=== PATIENT | male | born 1940 | race Caucasian/White ===

== ENCOUNTER 2017-04-16 12:44 | Inpatient (IN) | payer MEDICARE ==
[2017-04-16] MEDS ORDERED: ACETAMINOPHEN TAB 325 MG TAB PO PRN (16:09)
[2017-04-16] MEDS ORDERED: HYDROcodone/APAP 5-325MG 1 EACH TAB PO PRN (16:09)
[2017-04-16] MEDS ORDERED: NALOXONE 0.4 MG/ML 1 ML VIAL IV PRN (16:09)
[2017-04-16] MEDS ORDERED: SODIUM CHLORIDE 0.9% 500 ML IV ONE (16:15)
[2017-04-16] MEDS: SODIUM CHLORIDE 0.9% 1,000 ML IV SCH (16:35)
[2017-04-16 16:54] LABS: Basophils % (A) 0 %; CH 32.8; CHCM 35.5; Eosinophils # (A) 0.5 k/uL (0-0.7); Eosinophils % (A) 4 %; HCT 42.3 % (39.0-53.0); HDW 2.88; HGB 14.8 gm/dL (13.0-17.5); Luc # (Auto) 0.15; Luc % (Auto) 1; Lymphocytes # (A) 1.4 k/uL (1.0-4.8); Lymphocytes % (A) 12 %; MCH 32.6 pg (25.0-35.0); Mean Platelet Volume 8.6; Monocytes # (A) 0.7 k/uL (0-1.0); Monocytes % (A) 6 %; Neutrophils # (A) 8.6 k/uL (1.3-7.7); Neutrophils % (A) 76 %; RBC 4.54 m/uL (4.30-5.90); RDW 12.7 % (11.5-15.5); WBC 11.4 k/uL (3.8-10.6); WBC (Perox) 11.45
[2017-04-16 17:12] LABS: Calcium 8.7 mg/dL (8.4-10.2); Phosphorous 4.4 mg/dL (2.5-4.5); Potassium 5.1 mmol/L (3.5-5.1); Total Bilirubin 0.6 mg/dL (0.2-1.3)
[2017-04-16] MEDS: INSULIN LISPRO (humaLOG) 300 UNIT/3 ML VIAL SQ SCH ×2 (18:14→21:09)
[2017-04-16 18:15] LABS: Glucose,Whole Blood 77 mg/dL (75-99)
[2017-04-16 20:07] LABS: Glucose,Whole Blood 173 mg/dL (75-99)
--- NOTE | 2017-04-16 20:25 | US ---
EXAMINATION TYPE: US kidneys/renal and bladder DATE OF EXAM: 04/16/2017 COMPARISON: NONE CLINICAL HISTORY: [place]. Left kidney surgically absent. History of CA to left kidney 16 years ago. Tara ent states he was seen at another hospital this morning where he was told he has kidney stones. EXAM MEASUREMENTS: Right Kidney: 12.2 x 6.3 x 6.5 cm Left Kidney: Surgically absent Right Kidney: Two cystic areas visualized, largest measuring 1.2 x 1.3 x 0.9 cm. Multiple echogenic foci visualized, largest measuring 0.7 cm- possible stones. No hydronephrosis visualized. Cortical m edullary differentiation is maintained. Left Kidney: Surgically absent Bladder: Not distended Bilateral Jets seen: No- bladder not distended Incidental findings: Cystic area visualized right lobe of the liver measuring 4.6 x 3.8 x 4.1 cm. Granulomas within the spleen IMPRESSION: 1. Multiple nonobstructing right renal calculi, the largest measuring 7 mm. 2. Renal cysts, 2 in number, the larger measuring up to 1.2 cm. 3. Sequela of splenic granulomatous disease. 4. Hepatic cysts measuring up to 4.6 cm.
[2017-04-16 20:45] LABS: Hemoglobin A1C 5.7 % (4.2-6.1)
--- NOTE | 2017-04-16 23:59 | HP ---
DATE OF ADMISSION: Patient is a very pleasant 76-year-old gentleman who was transferred from [facility] because of acute renal failure. Patient was seen the day before in Urgent Care because of anuria, and patient was having severe right-sided flank pain radiating to the groin area. Patient's pain is about 10/10; a squeezing pain. Denied any dysuria. Denied any fever or chills. Patient was having nausea and vomiting. His pain has completely resolved at this point of time. Patient was given Toradol, Cipro. UA was done at that time and patient was subsequently discharged from Urgent Care. Patient remained anuric, because of which patient has seen Dr. Villagran in his clinic, who sent him to [facility]. [facility] did basic testing and a CT of the abdomen. CT of the abdomen showed a 2 mm stone with hydronephrosis on the right side. Patient only has one kidney, as his left kidney was removed secondary to renal cell carcinoma, which is in remission at this point of time. Patient's baseline creatinine is around 1.2. It was found to be around 4.5. I was called and subsequently he was transferred here for further evaluation by Urology and Nephrology. Patient also takes lisinopril at home for hypertension; has been taking it for more than a year. He mostly takes to prevent diabetic nephropathy. Patient denied any fever or chills at this point of time. REVIEW OF SYSTEMS: CONSTITUTIONAL: No fever, no malaise, no fatigue. HEENT: No recent visual problems or hearing problems. Denied any sore throat. CARDIOVASCULAR: No chest pain, orthopnea, PND, no palpitations, no syncope. PULMONARY: No shortness of breath, no cough, no hemoptysis. GASTROINTESTINAL: No diarrhea, no nausea, no vomiting, no abdominal pain. Normoactive bowel sounds. NEUROLOGICAL: No headaches, no weakness, no numbness. HEMATOLOGICAL: Denies any bleeding or petechiae. GENITOURINARY: As described in HPI. MUSCULOSKELETAL/RHEUMATOLOGICAL: Denies any joint pain, swelling, or any muscle pain. ENDOCRINE: Denies any polyuria or polydipsia. The rest of the 14 point review of systems is negative. Past medical history is significant for: 1. Renal cell carcinoma. 2. Left-sided nephrectomy. 3. Type 2 diabetes mellitus, for which patient only uses sliding scale insulin. 4. Hypertension, for which patient uses lisinopril and metoprolol. 5. Sleep apnea; uses CPAP machine at home. 6. Patient had a syncopal episode in the past, for which patient has a pacemaker. 7. Some heart rhythm abnormality apparently. SOCIAL HISTORY: Denied any smoking, alcohol abuse or any drug abuse. FAMILY HISTORY: Congestive heart failure, hypertension and heart problems in the family. PHYSICAL EXAMINATION: VITAL SIGNS: Temperature 97.5, pulse of 69, respiratory rate of 16. Blood pressure 117/63. Saturating at 97% on room air. GENERAL: The patient is alert and oriented x3, not in any acute distress. Well developed, well nourished. HEENT: Pupils are round and equally reacting to light. EOMI. No scleral icterus. No conjunctival pallor. Normocephalic, atraumatic. No pharyngeal erythema. No thyromegaly. CARDIOVASCULAR: S1 and S2 present. No murmurs, rubs, or gallops. PULMONARY: Chest is clear to auscultation, no wheezing or crackles. ABDOMEN: Soft, nontender, nondistended, normoactive bowel sounds. No palpable organomegaly. MUSCULOSKELETAL: No joint swelling or deformity. EXTREMITIES: No cyanosis, clubbing, or pedal edema. NEUROLOGICAL: Gross neurological examination did not reveal any focal deficits. SKIN: No rashes. LABORATORY DATA: None available, and significant lab data from [facility] was discussed above. ASSESSMENT AND PLAN: 1. Acute renal failure. Etiology is unknown. 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 Patient will be worked up. Will obtain ultrasound of the abdomen. My suspicion is low that a 2 mm stone which is a non-obstructive stone is causing his symptoms. Patient may have passed a stone. Ultrasound of the urinary bladder will be obtained and Urology will be consulted. Nephrology will be consulted for possible medical renal disease. Patient may have multiple factors that are contributing to his renal dysfunction: Ketorolac, lisinopril, and patient also had 4 episodes of diarrhea yesterday, which resolved at this point of time. They may have contributed to his symptoms as well. Patient may have prerenal azotemia. Patient will be given 500 mL bolus of fluid and IV fluids. Patient remains anuric. Patient does not have any urine in the bladder on the bladder scan. 2. Rule out oliguric acute tubular necrosis. Will obtain urine eosinophil, urinalysis, urine microscopy, urinary random sodium and urinary random creatinine. 3. Hypertension. Hold off Lisinopril at this time. Continue with metoprolol. 4. Diabetes mellitus. Patient is on sliding scale. Patient will be started on sliding scale here as well. Patient will be started on diet. Urology and Nephrology will be consulted. 5. Avoid any nephrotoxic agents. 6. Right-sided nephrolithiasis. Patient may have passed a stone already. Will get the ultrasound of the kidney, gallbladder and Nephrology's opinion as well.
[2017-04-17 01:37] LABS: Amorphous Sediment,Urine Occasional /hpf; Appearance,Urine Cloudy (Clear); Bacteria,Urine Occasional /hpf; Bilirubin,Urine Negative (Negative); Glucose,Urine (UA) Negative (Negative); Ketones,Urine Negative (Negative); Leukocyte Esterase,Urine Large (Negative); Mucus,Urine Few /hpf; Nitrite,Urine Negative (Negative); PH, Urine 5.5 (5.0-8.0); Particle Count 21599; Protein,Urine 1+ (Negative); RBC,Urine 48 /hpf (0-5); Specific Gravity,Urine 1.007 (1.001-1.035); Squamous Epithelial Cell,Urine 1 /hpf (0-4); UA Billing (MACRO vs. MICRO) MICRO; Urobilinogen,Urine <2.0 mg/dL (<2.0); WBC,Urine 33 /hpf (0-5)
[2017-04-17] MEDS: SODIUM CHLORIDE 0.9% 1,000 ML IV SCH ×2 (05:50→13:11)
[2017-04-17 07:31] LABS: Glucose,Whole Blood 90 mg/dL (75-99)
[2017-04-17] MEDS: INSULIN LISPRO (humaLOG) 300 UNIT/3 ML VIAL SQ SCH ×4 (08:10→20:36)
[2017-04-17 08:22] LABS: Basophils % (A) 0 %; CH 32.9; CHCM 35.7; Eosinophils # (A) 0.3 k/uL (0-0.7); Eosinophils % (A) 2 %; HCT 38.2 % (39.0-53.0); HDW 2.81; HGB 13.5 gm/dL (13.0-17.5); Luc # (Auto) 0.15; Luc % (Auto) 1; Lymphocytes # (A) 1.2 k/uL (1.0-4.8); Lymphocytes % (A) 12 %; MCH 32.7 pg (25.0-35.0); MCHC 35.3 g/dL (31.0-37.0); MCV 92.7 fL (80.0-100.0); Mean Platelet Volume 8.2; Monocytes # (A) 0.6 k/uL (0-1.0); Monocytes % (A) 6 %; Neutrophils % (A) 78 %; RBC 4.12 m/uL (4.30-5.90); RDW 12.7 % (11.5-15.5); WBC 10.3 k/uL (3.8-10.6); WBC (Perox) 10.31
[2017-04-17 08:24] LABS: Calcium 8.1 mg/dL (8.4-10.2)
[2017-04-17 08:28] LABS: Potassium 6.2 mmol/L (3.5-5.1)
[2017-04-17] MEDS ORDERED: SODIUM POLYSTYRENE SULFONATE 15 GM/60 ML BOTTLE PO STA ×2 (08:40→08:42)
[2017-04-17] MEDS ORDERED: FUROSEMIDE 10 MG/ML 10 ML VIAL IV STA (08:42)
[2017-04-17 09:59] LABS: INR 1.2 (<1.1); Prothrombin Time 11.6 sec (9.0-12.0)
[2017-04-17] MEDS ORDERED: HYDROcodone/APAP 5-325MG 1 EACH TAB PO PRN (10:02)
[2017-04-17 12:34] LABS: Glucose,Whole Blood 113 mg/dL (75-99)
--- NOTE | 2017-04-17 13:07 | CONS ---
DATE OF CONSULTATION: 04/17/2017 REASON FOR CONSULTATION: Anuria and acute renal failure. The patient is a 76-year-old male transferred from [facility] yesterday afternoon for evaluation of acute renal failure. Patient's history dates back to 04/15 when he developed anuria and severe right flank pain. The pain was associated with nausea and vomiting. He was seen in an urgent care clinic and presumed to be passing a kidney stone. He was given a single dose of IV Toradol and started on Cipro and Flomax. It is unclear whether any laboratory studies were done at that time. The patient continued to have anuria and was seen by Dr. Villagran yesterday morning. After reviewing the history, he had the patient go to the [facility] where he was noted to have a creatinine of 4.6 and a BUN of 45. The patient had previously undergone a left radical nephrectomy 16 years ago for treatment of renal cell cancer and apparently his baseline creatinine is 1.2. His potassium yesterday morning was 5.5. A CT scan of the abdomen and pelvis had been performed in the [facility] and identified a 2 mm mid right ureteral calculus and several nonobstructive right renal calculi. The patient was transferred to [facility] for further evaluation. He has remained anuric, although his right flank pain has resolved. A renal ultrasound was obtained yesterday and showed mild hydronephrosis and multiple right renal calculi. The patient's creatinine at midnight last night was 5.29. His creatinine has risen to 7.40 and his potassium this morning is 6.2. I was notified of the urologic consultation this morning. The patient has no personal history of urolithiasis or gross hematuria. His family history is significant in that his son has had stones. The patient usually voids every 3 to 4 hours during the day and once or twice at night. He describes a moderate urinary flow. Patient's past medical history is significant in regard to benign hypertension and type 2 diabetes mellitus. There is also a history of sleep apnea and arrhythmia, which caused syncope, which has been treated with pacemaker. The patient has also had undergone left inguinal hernia repair and the left radical nephrectomy described above. He normally takes metoprolol, lisinopril, gemfibrozil, atorvastatin, aspirin, Humalog and Levemir on an as-needed basis. 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 No history of rheumatic fever, or tuberculosis. REVIEW OF SYSTEMS: Significant mainly in regard to the above. SOCIAL HISTORY: The patient is and is a nonsmoker. Physical exam reveals a well-developed 76-year-old male who is alert and oriented. Blood pressure 114/63. Afebrile. HEENT: No supraclavicular or cervical adenopathy. No carotid bruit. CHEST: Clear bilaterally. CARDIAC: Regular rhythm. No murmur. ABDOMEN: Soft. No hepatosplenomegaly. No lower abdominal discomfort GENITALIA: Both testicles are descended. No hernias noted. Penis is uncircumcised. Additional laboratory evaluation includes a potassium of 6.2 this morning. Urine sodium was 36, urine creatinine is 62.8. I personally reviewed the patient's CT scan of the abdomen and pelvis, which was performed without IV contrast. There was a 2 mm mid right ureteral calculus at the time of the CT scan, which was causing mild right hydronephrosis,. Several 2 to 4 mm nonobstructive right renal calculi were also noted. There is some hyperdense lesions in the cortex of the upper pole of the right kidney of uncertain significance. These may be hyperdense cysts. IMPRESSION: 1. Anuria and acute renal failure secondary to obstructive right ureteral calculus. It is unclear whether the patient has passed the calculus but he remains anuric and in view of his elevated creatinine it is probable that the obstruction has continued. 2. Type 2 diabetes mellitus. 3. Benign hypertension. 4. History of renal cell carcinoma, post left radical nephrectomy. RECOMMENDATION: The patient will undergo cystoscopy with right double-J catheter placement. The double-J catheter will be left in place until the right renal calculi have also been removed at a later date, once his acute renal failure has resolved.. As I explained to the patient and his family, treatment of the acute renal failure is the main purpose of the procedure today. Thank you for allowing me to participate in the care of this patient. AMBER
[2017-04-17 14:07] LABS: Basophils % (A) 0 %; CH 32.5; CHCM 34.1; Eosinophils # (A) 0.2 k/uL (0-0.7); Eosinophils % (A) 3 %; HCT 39.7 % (39.0-53.0); HDW 2.66; HGB 13.3 gm/dL (13.0-17.5); Luc # (Auto) 0.13; Luc % (Auto) 2; Lymphocytes # (A) 1.4 k/uL (1.0-4.8); Lymphocytes % (A) 17 %; MCH 32.1 pg (25.0-35.0); MCHC 33.5 g/dL (31.0-37.0); MCV 95.7 fL (80.0-100.0); Mean Platelet Volume 8.5; Monocytes # (A) 0.5 k/uL (0-1.0); Monocytes % (A) 6 %; Neutrophils % (A) 72 %; RBC 4.14 m/uL (4.30-5.90); WBC 8.4 k/uL (3.8-10.6); WBC (Perox) 8.86
[2017-04-17 14:24] LABS: Calcium 7.9 mg/dL (8.4-10.2); Potassium 5.1 mmol/L (3.5-5.1)
--- NOTE | 2017-04-17 16:04 | CONS ---
DATE OF CONSULTATION: 04/17/17 REASON FOR CONSULTATION: Renal failure. HISTORY OF PRESENT ILLNESS: Patient is a 76-year-old male who has a prior history of left nephrectomy for kidney cancer many years ago. He presented to [facility] with complaints of weakness, not feeling well, and not having had any urine output for more than 24 hours. Patient states that his creatinine has been about 1.8 or so mg/dL as outpatient. He was at 7.4 mg/dL on this admission. Yesterday serum creatinine was 5.29 and today it was 7.4. Patient did receive Toradol in the ER. He had been complaining of back pain, which was another reason for admission to the hospital. Ultrasound showed evidence of stones, multiple non-obstructive calculi in the right kidney, the largest measuring about 7 mm. Patient denies any prior history of renal colic. He denied any use of other non-steroidal anti-inflammatory agents prior to admission. He did receive the Toradol in the ER yesterday, as previously mentioned. Patient has not had any significant urine output. A bladder scan showed only about 100 mL. PAST MEDICAL HISTORY: 1. Renal cell cancer, status post left nephrectomy. 2. Hypertension. 3. Type 2 diabetes. Medications at home prior to admission included: 1. Glucosamine. 2. Multivitamins. 3. Aspirin. 4. Flomax. 5. Metoprolol. 6. Cipro. 7. Insulin. 8. Lopid. 9. Zestril. SOCIAL HISTORY: Negative for smoking, drug abuse or alcohol abuse. REVIEW OF SYSTEMS: As per HPI. Other systems negative. On examination, patient is comfortable, awake, alert, oriented x3. He is not in any acute distress. Blood pressure is 129/72, heart rate 61 per minute. He is afebrile. EXAMINATION OF THE HEART: S1 and S2. EXAMINATION OF THE LUNGS: Bilateral breath sounds are heard. ABDOMEN: Soft, nontender. Examination of lower extremities shows no evidence of edema. [employer] exam is grossly intact. Patient is moving all 4 extremities. Labs show sodium of 137, potassium 6.2, chloride 108, BUN 61, serum creatinine 7.4. Calcium 8.1. Hemoglobin was 13.5 g/dL. ASSESSMENT: 1. Acute kidney injury. Need to rule out obstructive uropathy. CT at [facility] did show mild hydronephrosis on the right kidney. Patient has been evaluated by Urology and is scheduled for cystoscopy today. There is concern about possible acute interstitial nephritis as well, as patient had been on Cipro; however, this was only started about 2 days ago. His symptoms appear to be fairly acute in onset, suggesting possible obstructive uropathy, and this definitely got worsened with the Toradol that he received in the ER. 2. Metabolic acidosis secondary to renal failure. 3. Hyperkalemia associated with acute kidney injury and non-steroidal anti-inflammatory agents and obstructive uropathy. Will give a dose of Kayexalate and repeat labs. 4. History of renal cell cancer, status post left nephrectomy. 5. Hypertension. Hold off on BARBARA inhibitors. PLAN: Continue IV fluids. Kayexalate x1. Repeat labs in about 4 hours. Await cystoscopy, which is planned for later on today. Thank you for this consultation. Will continue to follow the patient with you during his hospitalization. AMBER
[2017-04-17 16:06] LABS: Glucose,Whole Blood 86 mg/dL (75-99)
[2017-04-17] MEDS ORDERED: IV FLUID CONTINUATION 1,000 ML IV ONE (16:11)
[2017-04-17] MEDS ORDERED: ONDANSETRON 4 MG/2 ML VIAL IVP ONE (16:18)
[2017-04-17] MEDS ORDERED: PROPOFOL 10 MG/ML 20 ML VIAL IV ONE (16:42)
[2017-04-17] MEDS ORDERED: fentaNYL (PF) 50 MCG/ML 2 ML AMP ONE (16:42)
[2017-04-17] MEDS ORDERED: MIDAZOLAM 2 MG/2 ML VIAL ONE (16:42)
[2017-04-17] MEDS ORDERED: LIDOCAINE 1% INJ 10MG/ML (20 ML MDV) ONE (16:42)
--- NOTE | 2017-04-17 17:30 | PN ---
This patient is a 76-year-old, admitted secondary to acute renal failure secondary to possible nephrolithiasis, and patient will go for J-tube placement today. Patient's kidney function has worsened. Patient is severely depressed because of concerns about permanent kidney dysfunction, CKD secondary to this event. Patient remains anuric. Creatinine worsened compared to yesterday. Patient is undergoing procedure today. Unfortunately patient ended up eating today. Unfortunately Nephrology was not notified until today morning. REVIEW OF SYSTEMS: CARDIOVASCULAR: No chest pain, no orthopnea, no PND, no palpitations. PULMONARY: Denied any shortness of breath. No cough or hemoptysis. GASTROINTESTINAL: No diarrhea, nausea or vomiting. No abdominal pain. Normoactive bowel sounds. NEUROLOGIC: No headaches, no weakness, no numbness. Medications were reviewed. PHYSICAL EXAMINATION: VITAL SIGNS: Temperature 97.6, pulse of 61, respiratory rate of 16, blood pressure 129/72. Saturating at 98% on room air. GENERAL: The patient is alert and oriented x3, not in any acute distress. Well developed, well nourished. HEENT: Pupils are round and equally reacting to light. EOMI. No scleral icterus. No conjunctival pallor. Normocephalic, atraumatic. No pharyngeal erythema. No thyromegaly. CARDIOVASCULAR: S1 and S2 present. No murmurs, rubs, or gallops. PULMONARY: Chest is clear to auscultation, no wheezing or crackles. ABDOMEN: Soft, nontender, nondistended, normoactive bowel sounds. No palpable organomegaly. MUSCULOSKELETAL: No joint swelling or deformity. EXTREMITIES: No cyanosis, clubbing, or pedal edema. NEUROLOGICAL: Gross neurological examination did not reveal any focal deficits. SKIN: No rashes. LABORATORY DATA: CBC and CMP are abnormal for elevated potassium of 6.2, improved to 5.1 after Kayexalate. WBC count of 8400. Bicarbonate of 18. Ultrasound of the kidney did show nephrolithiasis, and ( ) of sodium is not consistent with prerenal azotemia. ASSESSMENT AND PLAN: 1. Acute renal failure, most probably related to postobstructive causes; that is nephrolithiasis. Patient has a unilateral kidney. There may be a component of acute tubular necrosis as well. 2. Hypertension. Hold off Lisinopril. 3. Type 2 diabetes mellitus. Continue with sliding scale at this point of time. 4. History of renal cell carcinoma, status post nephrectomy. 5. Leukocytosis, reactive response. Patient is not being continued on any antibiotics at this point of time. 6. Hyperkalemia secondary to renal failure, improved with Kayexalate.
--- NOTE | 2017-04-17 17:34 | FL ---
Fluoroscopy INDICATION: Pain FINDINGS: Fluoroscopy time: 20 seconds. Images obtained: 1. IMPRESSIONS: 1. Documentation of fluoroscopy.
[2017-04-17] MEDS ORDERED: SODIUM CHLORIDE 0.9% 1,000 ML IV ONE ×2 (17:44)
[2017-04-17 17:45] LABS: Glucose,Whole Blood 84 mg/dL (75-99)
[2017-04-17 19:57] LABS: Glucose,Whole Blood 169 mg/dL (75-99)
[2017-04-17] MEDS: TAMSULOSIN 0.4 MG CAP.ER.24H PO SCH (20:36)
[2017-04-17 22:25] LABS: Calcium 8.3 mg/dL (8.4-10.2); Potassium 4.9 mmol/L (3.5-5.1)
[2017-04-18] MEDS: SODIUM CHLORIDE 0.9% 1,000 ML IV SCH ×3 (05:46→17:39)
[2017-04-18] MEDS: METOPROLOL SUCCINATE (ER) 50 MG TAB.ER.24H PO SCH (07:54)
[2017-04-18] MEDS: ATORVASTATIN 10 MG TAB PO SCH (07:54)
[2017-04-18] MEDS: ASPIRIN 81 MG CHEW PO SCH (07:55)
--- NOTE | 2017-04-18 07:55 | OP ---
DATE OF SERVICE: 04/17/2017 SURGEON: IGNACIO ROSARIO MD PREOPERATIVE DIAGNOSIS: Anuria secondary to right renal calculus. POSTOPERATIVE DIAGNOSIS: Anuria secondary to right renal calculus. OPERATION: Cystoscopy with placement of right double J catheters. ANESTHESIA: General anesthesia. INDICATIONS: The patient is a 76-year-old male who developed anuria on 04/15. CT scan yesterday identified a 2 mm mid right ureteral calculus with mild hydronephrosis as well as several small nonobstructive right renal calculi. The patient's left kidney had previously been removed due to a renal malignancy. The patient's creatinine has continued to rise and he remains anuric. Ccystoscopy with placement of a right double-J catheter is planned to allow better drainage from the right kidney. PROCEDURE: The patient was taken the operating suite where adequate general anesthesia via LMA was instituted. The patient was placed in the dorsal lithotomy position with his legs suspended from padded Reginaldo stirrups. Pneumatic compression stockings were applied to the lower legs. The genitalia was prepped with Betadine solution, and draped in a sterile fashion. The penile and prostatic urethra were traversed under direct vision using the 19 Azeri cystoscope sheath and 30 degrees lens. There was no evidence of inflammatory lesion, tumor or stricture noted in the anterior urethra. Prostatic urethra showed evidence of moderate lateral lobe enlargement. No urothelial abnormalities were noted. The bladder was examined. Both ureteral orifices were of normal location and configuration. Minimal urine was present within the bladder. The bladder was free of tumor, foreign body and diverticulum. A 0.035 straight Glidewire was then advanced through the right ureteral orifice and up to the region of the right renal pelvis. A 6 Azeri x 24 cm double-J catheter was then advanced over the Glidewire and positioned using fluoroscopy so that the proximal end coiled in the region of the right renal pelvis and the distal end coiled in the bladder. The bladder was drained and the cystoscope was withdrawn. The patient tolerated procedure well and left the operating room awake and in satisfactory condition. There was no blood loss. The patient's renal function will be repeated later today. Elective ureteroscopy with lithotripsy for treatment of the ureteral and renal calculi will be set up at a later date once the patient's renal function has returned to normal. [facility]
[2017-04-18 08:10] LABS: Glucose,Whole Blood 86 mg/dL (75-99)
[2017-04-18] MEDS: INSULIN LISPRO (humaLOG) 300 UNIT/3 ML VIAL SQ SCH ×4 (08:49→21:50)
[2017-04-18] MEDS ORDERED: METOPROLOL SUCCINATE (ER) 50 MG TAB.ER.24H PO SCH (09:00)
[2017-04-18 09:20] LABS: Calcium 8.2 mg/dL (8.4-10.2); Potassium 4.7 mmol/L (3.5-5.1)
--- NOTE | 2017-04-18 09:36 | P.PN ---
Progress Note - Text The patient is afebrile and normotensive. He has mild right flank pain when he voids which is most likely related to his double-J catheter. He began urinating last night and overnight has maintained a large urine output. His urine is currently clear. Creatinine had fallen to 6.6 yesterday evening and was 4.09 this am. Potassium is 4.7. Impression: Anuria and acute renal failure secondary to obstructive right ureteral calculus-improved with decompression following double-J catheter placement. Recommendation: If the patient's renal function continues to improve he can be discharged in the morning. Outpatient ureteroscopy with lithotripsy for treatment of his right renal and ureteral calculi will be set up sometime later in the month.
[2017-04-18 11:33] LABS: Glucose,Whole Blood 117 mg/dL (75-99)
--- NOTE | 2017-04-18 16:23 | PN ---
76-year-old obstructive uropathy, improving creatinine at this point of time, which has come down from almost 7 to 4.09 and patient has a J-tube that was placed. Patient has minimally hematuria. REVIEW OF SYSTEMS: CARDIOVASCULAR: No chest pain, no orthopnea, no PND, no palpitations. PULMONARY: Denied any shortness of breath. No cough or hemoptysis. GASTROINTESTINAL: No diarrhea, nausea or vomiting. No abdominal pain. Normoactive bowel sounds. NEUROLOGIC: No headaches, no weakness, no numbness. Medications are reviewed. PHYSICAL EXAMINATION: Temperature 97.1, pulse of 63, respiratory rate of 20. Blood pressure 131/73, saturating at 98% on room air. GENERAL: The patient is alert and oriented x3, not in any acute distress. Well developed, well nourished. HEENT: Pupils are round and equally reacting to light. EOMI. No scleral icterus. No conjunctival pallor. Normocephalic, atraumatic. No pharyngeal erythema. No thyromegaly. CARDIOVASCULAR: S1 and S2 present. No murmurs, rubs, or gallops. PULMONARY: Chest is clear to auscultation, no wheezing or crackles. ABDOMEN: Soft, nontender, nondistended, normoactive bowel sounds. No palpable organomegaly. MUSCULOSKELETAL: No joint swelling or deformity. EXTREMITIES: No cyanosis, clubbing, or pedal edema. NEUROLOGICAL: Gross neurological examination did not reveal any focal deficits. SKIN: No rashes. Creatinine as mentioned above. ASSESSMENT AND PLAN: 1. Acute renal failure post obstructive ( ) nephrolithiasis. The patient is status post J-tube placement, will ( ) urology for the removal of kidney stones. 2. Hypertension. 3. Type 2 diabetes mellitus. 4. History of renal cell carcinoma, status post nephrectomy on the left side. Patient only has right kidney. 5. Leukocytosis, reactive which resolved. 6. Hypokalemia, which resolved with Kayexelate. The plan is to continue with present medications. IV fluids. Will monitor kidney function. Possibility of discharge tomorrow. I am expecting kidney function to improve.
[2017-04-18 17:30] LABS: Glucose,Whole Blood 93 mg/dL (75-99)
[2017-04-18 20:13] LABS: Glucose,Whole Blood 154 mg/dL (75-99)
[2017-04-18] MEDS: TAMSULOSIN 0.4 MG CAP.ER.24H PO SCH (21:50)
[2017-04-18 22:35] VITALS: RESP 16
[2017-04-19] MEDS: SODIUM CHLORIDE 0.9% 1,000 ML IV SCH (06:23)
[2017-04-19 07:28] LABS: Glucose,Whole Blood 89 mg/dL (75-99)
[2017-04-19 07:35] LABS: Calcium 8.8 mg/dL (8.4-10.2); Potassium 4.4 mmol/L (3.5-5.1)
[2017-04-19 07:53] VITALS: BP 129/75; PULSE 62; TEMP 97.9
[2017-04-19] MEDS: INSULIN LISPRO (humaLOG) 300 UNIT/3 ML VIAL SQ SCH (08:04)
[2017-04-19] MEDS: METOPROLOL SUCCINATE (ER) 50 MG TAB.ER.24H PO SCH (08:05)
[2017-04-19] MEDS: ATORVASTATIN 10 MG TAB PO SCH (08:05)
[2017-04-19] MEDS: ASPIRIN 81 MG CHEW PO SCH (08:05)
--- NOTE | 2017-04-19 10:18 | P.PN ---
Progress Note - Text The patient is afebrile and normotensive. He has no abdominal or flank pain. He passed some brownish colored urine early this morning but otherwise his urine has remained clear. BUN/creatinine today is 37/2.13. Potassium is 4.4 and bicarb is 21. Impression: Acute renal failure and anuria secondary to obstructive right ureteral calculus-resolving following placement of double-J catheter. Plan: The patient can be discharged today from my standpoint. My office will call him and set up outpatient right ureteroscopy with lithotripsy at which time his ureteral and renal calculi will be removed. The patient does not need to be on prophylactic antibiotics at the time of discharge.
--- NOTE | 2017-04-20 09:05 | DS ---
DATE OF ADMISSION: 04/16/2017 DATE OF DISCHARGE: 04/19/2017 Patient is admitted with obstructive uropathy. Patient's creatinine improved to 2.13. Patient has a J-tube placed. Patient does not have any hematuria. Patient is feeling much better at this point of time and I will discontinue his lisinopril. I do not believe Cipro is necessary at this point of time. I do not believe patient has urinary tract infection. Patient will go back for urethroscopy. The patient was seen and examined on the day of discharge. Vitals are stable. PHYSICAL EXAMINATION: GENERAL: The patient is alert and oriented x3, not in any acute distress. Well developed, well nourished. HEENT: Pupils are round and equally reacting to light. EOMI. No scleral icterus. No conjunctival pallor. Normocephalic, atraumatic. No pharyngeal erythema. No thyromegaly. CARDIOVASCULAR: S1 and S2 present. No murmurs, rubs, or gallops. PULMONARY: Chest is clear to auscultation, no wheezing or crackles. ABDOMEN: Soft, nontender, nondistended, normoactive bowel sounds. No palpable organomegaly. MUSCULOSKELETAL: No joint swelling or deformity. EXTREMITIES: No cyanosis, clubbing, or pedal edema. NEUROLOGICAL: Gross neurological examination did not reveal any focal deficits. SKIN: No rashes. ( ) 1. Acute renal failure, postobstructive due to nephrolithiasis, status post J-tube placement and significantly improved creatinine to 2.13. His baseline is between 1.3 and 1.4, which is expected to come down by tomorrow. 2. Type 2 diabetes mellitus. 3. History of renal cell carcinoma, status post nephrectomy on the left side. Patient has unilateral right kidney secondary to that. 4. Leukocytosis, reactive in nature, which is resolved. 5. Hypokalemia, resolved with Kayexalate. Patient will be discharged today. Please refer to my depart summary for the further details of discharge medications. Activity as tolerated. Diabetic ADA 1800 calorie diet. Follow up with primary care physician, Dr. Villagran in 3 to 7 days. His lisinopril can be reinitiated once his kidney function returns to his baseline. Activity as tolerated. Patient will follow with Dr. Raheem Danielle as scheduled. Spent greater than 35 minutes in total discharge process.
== END 2017-04-19 12:02 | disposition home or self-care (01) | DRG 660 ==
LOC: 5MS5E 14:42
PROVIDERS: ADMIT Internal Medicine; ATTEND Internal Medicine
PROC: 0T738DZ Dilation of Right Kidney Pelvis with Intraluminal Device, Via Natural or Artificial Opening Endoscopic (ICD-10-PCS; principal; 2017-04-17 09:15)
DX: N17.9 Acute kidney failure, unspecified (principal); E87.2 Acidosis; E11.22 Type 2 diabetes mellitus with diabetic chronic kidney disease; E87.5 Hyperkalemia; Z85.528 Personal history of other malignant neoplasm of kidney; Z82.49 Family history of ischemic heart disease and other diseases of the circulatory system; G47.30 Sleep apnea, unspecified; I12.9 Hypertensive chronic kidney disease with stage 1 through stage 4 chronic kidney disease, or unspecified chronic kidney disease; K40.90 Unilateral inguinal hernia, without obstruction or gangrene, not specified as recurrent; N13.2 Hydronephrosis with renal and ureteral calculous obstruction; N18.3 Chronic kidney disease, stage 3 (moderate); Z90.5 Acquired absence of kidney; Z79.82 Long term (current) use of aspirin; Z79.4 Long term (current) use of insulin; Z79.899 Other long term (current) drug therapy
CPT/HCPCS: 76770; 80048; 80053; 81001; 82570; 83036; 84100; 84300; 85025; 85610; 87205

== ENCOUNTER 2023-07-03 07:19 | Day surgery (SDC) | payer MEDICARE ==
[2023-06-25 17:15] VITALS: BMI 26.6
[2023-07-03] MEDS ORDERED: LIDOCAINE 1% (10MG/ML) FOR IV START INTRADERMA PRN (07:49)
[2023-07-03] MEDS ORDERED: LACTATED RINGERS 1,000 ML IV SCH (07:49)
[2023-07-03] MEDS ORDERED: ONDANSETRON 4 MG/2 ML VIAL IVP ONE (07:49)
[2023-07-03 08:19] LABS: Glucose,Whole Blood 138 mg/dL (70-110)
[2023-07-03] MEDS ORDERED: MIDAZOLAM 2 MG/2 ML VIAL IVP ONE (08:23)
[2023-07-03] MEDS ORDERED: fentaNYL (PF) 50 MCG/1 ML VIAL IVP ONE (08:24)
[2023-07-03 08:27] LABS: Basophils # (A) 0.1 k/uL (0-0.2); Basophils % (A) 1 %; Eosinophils # (A) 0.5 k/uL (0-0.7); Eosinophils % (A) 5 %; HCT 46.7 % (39.0-53.0); HGB 16.6 gm/dL (13.0-17.5); Lymphocytes % (A) 22 %; MCH 32.9 pg (25.0-35.0); MCHC 35.6 g/dL (31.0-37.0); MCV 92.4 fL (80.0-100.0); Mean Platelet Volume 9.5; Monocytes # (A) 0.6 k/uL (0-1.0); Monocytes % (A) 7 %; Neutrophils # (A) 5.9 k/uL (1.3-7.7); Neutrophils % (A) 64 %; Platelet Count 179 k/uL (150-450); RBC 5.05 m/uL (4.30-5.90); RDW 13.2 % (11.5-15.5); WBC 9.2 k/uL (3.8-10.6)
[2023-07-03 08:38] LABS: ALT 22 U/L (4-49); AST 28 U/L (17-59); African American GFR (CKD) 40 (>60 ml/min/1.73 sqM); Albumin 4.5 g/dL (3.5-5.0); Alkaline Phosphatase 63 U/L (38-126); Anion Gap 10 mmol/L; Blood Urea Nitrogen 34 mg/dL (9-20); Calcium 9.2 mg/dL (8.4-10.2); Carbon Dioxide 25 mmol/L (22-30); Chloride 105 mmol/L (98-107); Glucose 128 mg/dL (74-99); Non-African American GFR(CKD) 34 (>60 ml/min/1.73 sqM); Potassium 4.5 mmol/L (3.5-5.1); Sodium 140 mmol/L (137-145); Total Bilirubin 0.9 mg/dL (0.2-1.3); Total Protein 7.4 g/dL (6.3-8.2)
--- NOTE | 2023-07-03 08:59 | P.ANPRN ---
Procedure Note - Anesthesia - Nerve Block Performed Left Popliteal Single Time Out Performed: Yes Date of Procedure: 07/03/23 Procedure Start Time: Procedure Stop Time: :35 Location of Patient: PreOp Indication: Acute Post-Operative Pain, Requested by Surgeon Specifically requested for management of pain by DrNicholas: Star Bailey Sedation Type: Sedate with meaningful contact maintained Preparation: Sterile Prep Position: Right Lateral Needle Types: Pajunk Needle Gauge: 21 Ultrasound used to visualize needle placement: Yes Ultrasound used to observe medication spread: Yes Injectate: 0.5% Ropivacaine (see comment for volume) (15 ml + 15 ml Lidocaine 1% with epi 1/200 K) Blood Aspirated: No Pain Paresthesia on Injection Noted: No Resistance on Injection: Normal Image Stored and Saved: Yes Events: Uneventful and Well Tolerated
[2023-07-03] MEDS ORDERED: ceFAZolin 1,000 MG in SODIUM CHLORIDE 0.9% 1,000 ML IRRIGATION ONE (09:39)
[2023-07-03] MEDS ORDERED: LACTATED RINGERS 1,000 ML IV ONE (10:32)
[2023-07-03 10:57] VITALS: TEMP 97
[2023-07-03 11:04] LABS: Glucose,Whole Blood 117 mg/dL (70-110)
[2023-07-03] MEDS: HYDROmorphone 0.5 MG/0.5 ML SYRINGE IVP PRN ×2 (11:16→11:29)
[2023-07-03 12:00] VITALS: RESP 18
[2023-07-03 13:11] VITALS: BP 129/81; PULSE 61
--- NOTE | 2023-07-03 13:34 | P.OP ---
Date of Procedure: 07/03/23 Preoperative Diagnosis: Primary osteoarthritis first tarsometatarsal joint left foot Postoperative Diagnosis: Same Procedure(s) Performed: First tarsometatarsal joint arthrodesis left foot Implants: Jacklyn 4.0 cannulated headless screw Godinez Med Lapidus plate with locking and non-locking scres Godinez Augment 1.5cc Anesthesia: ADILSONA Surgeon: Star Bailey Estimated Blood Loss (ml): 2 Pathology: none sent Condition: stable Disposition: PACU Description of Procedure: Prior to the patient being brought to the operative room, anesthesia administered a nerve block on the left lower extremity. The patient was brought into the operative room placed on table supine position. Timeout was taken to confirm correct patient identifiers, correct lateral of surgery, and correct procedure. When all staff in the room were in agreement timeout, the patient was induced placed under general anesthesia. A well-padded tourniquet was placed on the left ankle and left foot was prepped and draped usual manner. Left foot was exsanguinated and the tourniquet inflated to 250 mmHg. Attention directed over the medial aspect of the midfoot where an incision was made in the same plane over the first tarsometatarsal joint. The incision was down to the subcutaneous tissue careful to identify, avoid, and retract any neurovascular structures and cauterize any bleeding vessels. Blunt dissection then continued down to the joint capsule of the first tarsometatarsal joint. Straight dorsal to plantar incision was made to the capsule to free the soft tissue. An osteotome was then used to remove the articular cartilage. The rotary bur was utilized to remove any remaining articular cartilage, the subchondral bone and expose bleeding cancellus bone. Once the joint preparation was completed, the arthrodesis site was held in reduction and a sagittal saw inserted to plane the surfaces so that bony contact would be maximized. The wound is then irrigated thoroughly with antibiotic saline. 2.0 drill bit was then used to aggressively fenestrate the conjoining surfaces of the arthrodesis site. Then 1.5 mL of augment was placed between the arthrodesis segments. A guidewire for a 4.0 headless cannulated screw was inserted dorsal distal and advanced proximal plantar across the arthrodesis site. Fluoroscopy confirmed proper placement of the wire both in AP and lateral views. Over drilling was completed and then the screw inserted across the guidewire and advanced until the head engaged the bone of the dorsal first metatarsal and compressed the arthrodesis site. Fluoroscopic imaging confirmed appropriate placement of the screw. Right medical Lapidus plate was then positioned over the medial aspect of the arthrodesis site. Temporary fixation was utilized and fluoroscopy was used to adjust the position. Once was acceptable 2 locking screws were placed in the most proximal holes of the plate into the medial cuneiform. Next the compression slot distally was drilled eccentrically and the screw inserted and allowed to engage the plate to provide further compression. 2 additional locking screws were placed in the distal part of the plate into the first metatarsal. There was manually manipulated there was no motion noted at the arthrodesis site. Fluoroscopy showed good compression at the arthrodesis site and proper placement of hardware. The wound is irrigated with antibiotic saline. Deep closure done with 2-0 Vicryl. Subcu closure done for Monocryl. Skin closure done with 4-0 Stratafix in a running subcu manner. Dermal glue was applied Lunder dry then covered Steri-Strips. An Arthrex jumpstart dressing and a dry sterile dressing applied to the left foot. The tourniquet was released and capillary refill return to all digits on the left foot. Patient placed in a well-padded, well molded plaster posterior mold/sugar tong splint. Ankle to rule out neutral position until splint was dried. The patient tolerated above procedure and anesthesia well which recovery vital signs stable
== END 2023-07-03 13:49 | disposition home or self-care (01) ==
LOC: OR 07:19
PROVIDERS: ATTEND Podiatrist
DX: M19.072 Primary osteoarthritis, left ankle and foot (principal); I10 Essential (primary) hypertension; E78.5 Hyperlipidemia, unspecified; E11.9 Type 2 diabetes mellitus without complications; Z98.890 Other specified postprocedural states; Z90.49 Acquired absence of other specified parts of digestive tract; Z95.0 Presence of cardiac pacemaker; Z82.49 Family history of ischemic heart disease and other diseases of the circulatory system; Z83.3 Family history of diabetes mellitus; Z79.4 Long term (current) use of insulin; Z79.899 Other long term (current) drug therapy
CPT/HCPCS: 80053; 85025; 28740; J2250; J0690 ×2; J2405; J1170; J3010